=== PATIENT | female | born 2000 | race Caucasian/White ===

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

== ENCOUNTER 2020-03-23 11:09 | Emergency (ER) | payer BC, MEDICAID ==
[~2020-03-23] VITALS: Ht 167.6 cm; Wt 72.1 kg
--- NOTE | 2020-03-23 13:05 | NUR ---
awaiting ed MD.
--- NOTE | 2020-03-23 14:17 | NUR ---
Ultrasound at bedside.
[2020-03-23 15:21] VITALS: BP 104/62
[2020-03-23 15:30] LABS: CLARITY,URINE CLEAR (Clear); COLOR,URINE YELLOW (Yellow); GLUCOSE, URINE NEGATIVE (Neg); KETONES,URINE NEGATIVE (Neg); LEUKOCYTE ESTERASE ,URINE SMALL (Neg); NITRITES, URINE NEGATIVE (Neg); OCCULT BLOOD,URINE LARGE (Neg); PROTEIN,URINE NEGATIVE (Neg); UROBILINOGEN,URINE 0.2 E.U/dL (0.2-1.0)
[2020-03-23 15:35] LABS: UA COLLECTION TYPE CLN CATCH MIDSTREAM
[2020-03-23 15:36] LABS: AMORPHOUS PHOSPHATES 1+; BACTERIA,URINE FEW /HPF (Neg); MUCUS STRANDS FEW /LPF (Neg); RBC,URINE 0-2 /HPF (0-2); SQUAMOUS EPITHELIAL CELL,UR MODERATE /LPF (FEW)
[2020-03-23] MEDS ORDERED: CEPH500C5 PO (15:49)
== END 2020-03-23 15:58 | disposition home or self-care (01) ==
LOC: ER 11:10
DX: O23.41 Unspecified infection of urinary tract in pregnancy, first trimester (principal); O20.0 Threatened abortion; N93.9 Abnormal uterine and vaginal bleeding, unspecified; N39.0 Urinary tract infection, site not specified; Z79.899 Other long term (current) drug therapy
CPT/HCPCS: 36415; 76801; 81001; 84702; 87088; 93976; 99284